=== PATIENT | female | born 1950 | race Caucasian/White ===

== ENCOUNTER 2021-07-25 19:03 | Emergency (ER) | payer BC, MEDICARE ==
[2021-07-25 19:23] VITALS: BP 168/85; PULSE 102; RESP 20; TEMP 97.8
[2021-07-25] MEDS ORDERED: DIPH,PERTUS(ACELL)TETVAC-LF 0.5 ML VIAL IM ONE (19:41)
--- NOTE | 2021-07-25 19:42 | ED ---
Fall HPI - General Chief Complaint: Fall Stated Complaint: Fall Time Seen by Provider: 07/25/21 19:34 Source: patient Mode of arrival: EMS - History of Present Illness Initial Comments: 70-year-old female patient presents to the emergency department today for evaluation of left knee pain after fall. States she was coming down the stairs and missed the last step and fell forward landing on her knee. Patient states she has significant soft tissue swelling and pain to the area. Unable to walk. Denies numbness or tingling to the leg. She denies hitting her head or losing consciousness. Denies any neck or back pain. Denies any other injuries. Patient is unsure when her last tetanus vaccine was given. Has not taken any pain medication prior to arrival. Patient denies any headache, chest pain, shortness of breath, dizziness, weakness, abdominal pain, nausea, vomiting, or difficulties with bowel movements or urination. - Related Data Previous Rx's Medication Instructions Recorded Acetaminophen-Codeine 300-30mg 1 tab PO Q6H PRN #12 tablet 07/25/21 [Tylenol #3] Cyclobenzaprine [Flexeril] 10 mg PO TID #15 tab 07/26/21 Allergies Allergy/AdvReac Type Severity Reaction Status Date / Time kiwi Allergy Swelling Verified 07/25/21 19:19 Sulfa (Sulfonamide Allergy Rash/Hives Verified 07/25/21 19:19 Antibiotics) Review of Systems ROS Statement: Those systems with pertinent positive or pertinent negative responses have been documented in the HPI. ROS Other: All systems not noted in ROS Statement are negative. Past Medical History Past Medical History: Diabetes Mellitus, Hyperlipidemia, Hypertension History of Any Multi-Drug Resistant Organisms: None Reported Past Surgical History: Cholecystectomy, Heart Catheterization, Heart Catheterization With Stent, Orthopedic Surgery Additional Past Surgical History / Comment(s): left hip[ Past Psychological History: No Psychological Hx Reported Smoking Status: Former smoker Past Alcohol Use History: Occasional Past Drug Use History: None Reported General Exam General appearance: alert, in no apparent distress, other (This is a well- developed, well-nourished adult female in no acute distress.) Head exam: Present: atraumatic, normocephalic, normal inspection ENT exam: Present: normal exam, normal oropharynx, mucous membranes moist Neck exam: Present: normal inspection, full ROM, other (Nontender, no step-off, no deformity to firm midline palpation of the posterior cervical spine. Full range of motion without pain or limitation.). Absent: tenderness, meningismus, lymphadenopathy Respiratory exam: Present: normal lung sounds bilaterally. Absent: respiratory distress, wheezes, rales, rhonchi, stridor Cardiovascular Exam: Present: normal rhythm, tachycardia, normal heart sounds. Absent: systolic murmur, diastolic murmur, rubs, gallop, clicks GI/Abdominal exam: Present: soft, normal bowel sounds. Absent: distended, tenderness, guarding, rebound, rigid Extremities exam: Present: tenderness (Left anterior knee), normal capillary refill, other (Significant anterior left knee swelling, ecchymosis, superficial abrasion. Skin to the left leg is otherwise pink, warm, dry. Cap refill less than 3 seconds. Pedal and posttibial pulses 2+.). Absent: normal inspection, full ROM (Limited to the left knee due to pain with movement), pedal edema, joint swelling, calf tenderness Back exam: Present: normal inspection, other (Nontender, no step-off, no deformity to firm midline palpation of the thoracic and lumbar vertebrae. Full range of motion without pain or limitation.). Absent: vertebral tenderness Neurological exam: Present: alert, oriented X3, CN II-XII intact Psychiatric exam: Present: normal affect, normal mood Skin exam: Present: warm, dry, intact, normal color. Absent: rash Course Vital Signs 07/25/21 19:19 Temperature 97.8 F Pulse Rate 102 H Respiratory 20 Rate Blood Pressure 168/85 O2 Sat by Pulse 94 L Oximetry - Reevaluation(s) Reevaluation #1: 07/25/21 19:41 Hard c-collar in place on arrival. No reports of neck pain. No bony tenderness or step off with midline palpation. She had no pain with gentle range of motion. C-collar cleared. 07/25/21 19:42 Patient declined pain medication. Medical Decision Making - Medical Decision Making 70-year-old female patient presents to the emergency department today for evaluation of left knee pain after a fall. Physical examination reveals significant soft tissue swelling over the left anterior knee with ecchymosis and superficial abrasion. X-ray was obtained and showed evidence for displaced patella fracture. Discussed the case with Dr. Garcia who recommends splinting and follow-up in the office. Patient is given crutches. Given pain medication/muscle relaxer. She is given instructions for follow-up with orthopedics Tuesday. Return parameters were discussed in detail. She verbalizes understanding and agrees with this plan. My attending is Dr. Mckenzie. - Radiology Data Radiology results: report reviewed, image reviewed X-ray of the left hip and pelvis are obtained. Report was reviewed in its entirety. Impression by Dr. Fagan shows no acute osseous pathology. Left hip arthroplasty changes with hardware intact. Disposition Clinical Impression: Displaced fracture of left patella Disposition: HOME SELF-CARE Condition: Good Instructions (If sedation given, give patient instructions): Patellar Fracture (ED), Splint Care (ED) Additional Instructions: Rest, ice, elevate the knee. Follow-up with orthopedics on Tuesday, call the office first thing in the morning for your appointment time. Take pain medication as directed. Return to the emergency department for any new, worsening, or concerning symptoms. Prescriptions: Acetaminophen-Codeine 300-30mg [Tylenol #3] 1 tab PO Q6H PRN #12 tablet PRN Reason: Pain Is patient prescribed a controlled substance at d/c from ED?: Yes When asked, does pt state using other controlled substances?: No If prescribed controlled substance>3 days was MAPS reviewed?: Prescribed <3 Days If opioid is for acute pain is fill amount 7 days or less?: Yes If Rx opioid, was Start Talking consent form obtained?: Yes Referrals: Nonstaff,Physician [Primary Care Provider] - 1-2 days Time of Disposition: 22:58
[2021-07-25] MEDS ORDERED: IBUPROFEN 600 MG TAB PO STA (20:24)
--- NOTE | 2021-07-25 21:05 | XR ---
EXAMINATION TYPE: XR Hip LT and AP Pelvis DATE OF EXAM: 07/25/2021 8:47 PM INDICATION: Patient age:Female; 70 years old; Reason for study: Fall/injury. COMPARISON: None TECHNIQUE: The left hip with AP pelvis was examined in the frontal and lateral projections. FINDINGS: Left total hip arthroplasty changes. Hardware is intact. No evidence of fracture. There are changes of the right hip. Pelvic fullness noted. Multilevel degenerative disc disease changes of the lower spine. No evidence of any acute osseous pathology, joint dislocation, or soft tissue swelling. IMPRESSION: 1. No acute osseous pathology. 2. Left hip arthroplasty changes with hardware intact.
--- NOTE | 2021-07-25 21:16 | XR ---
EXAMINATION TYPE: XR knee complete LT DATE OF EXAM: 07/25/2021 8:47 PM INDICATION: Patient age:Female; 70 years old; Reason for study: Fall/injury; COMPARISON: None TECHNIQUE: The left knee was examined in 3 projections. FINDINGS: Acute fracture through the mid pole of the patella with 2.8 cm of separation. There is as sociated soft tissue swelling. The visualized fixation hardware of the femur is intact. IMPRESSION: 1. Acute displaced patellar fracture associated soft tissue swelling. 2. Partially visualized fixation hardware of the femur.
[2021-07-25] MEDS ORDERED: CYCLOBENZAPRINE 10MG STARTER 3 TAB BTL PO STA (23:13)
[2021-07-25] MEDS ORDERED: ACET/COD 300 MG/30 MG STARTER PACK 6 TAB BTL PO STA (23:13)
== END 2021-07-25 23:47 | disposition home or self-care (01) ==
LOC: EC 19:03
DX: S82.042A Displaced comminuted fracture of left patella, initial encounter for closed fracture (principal); I10 Essential (primary) hypertension; E78.5 Hyperlipidemia, unspecified; E11.9 Type 2 diabetes mellitus without complications; Z88.2 Allergy status to sulfonamides; Z90.49 Acquired absence of other specified parts of digestive tract; Z87.891 Personal history of nicotine dependence; W10.8XXA Fall (on) (from) other stairs and steps, initial encounter
CPT/HCPCS: 73502; 90471; 90715; 99283

== ENCOUNTER 2021-08-04 09:06 | Day surgery (SDC) | payer MEDICARE, BC ==
[2021-07-31 15:19] VITALS: BMI 41.8
[~2021-08-04 09:06] MED LIST: DEXAMETHASONE SOD PHOSPHATE 4 MG/ML 1 ML VIAL IV ONE; HYDROmorphone 0.5 MG/0.5 ML SYRINGE IVP PRN; ONDANSETRON 4 MG/2 ML VIAL IVP ONE
[2021-08-04 10:10] LABS: Glucose,Whole Blood 249 mg/dL (75-99)
[2021-08-04] MEDS ORDERED: INSULIN ASPART (NovoLOG) 100 UNIT/ML VIAL SQ ONE (10:14)
[2021-08-04] MEDS: LACTATED RINGERS 1,000 ML IV SCH ×3 (10:15→21:12)
[2021-08-04] MEDS ORDERED: FAMOTIDINE 20 MG/2 ML VIAL IVP ONE (10:32)
[2021-08-04 10:37] LABS: African American GFR (CKD) >90 (>60 ml/min/1.73 sqM); Blood Urea Nitrogen 12 mg/dL (7-17); Non-African American GFR(CKD) 87 (>60 ml/min/1.73 sqM); Potassium 4.3 mmol/L (3.5-5.1)
[2021-08-04] MEDS ORDERED: MIDAZOLAM 2 MG/2 ML VIAL IVP ONE (10:38)
--- NOTE | 2021-08-04 10:48 | P.ANPRN ---
Procedure Note - Anesthesia - Nerve Block Performed Left Adductor Canal Single Time Out Performed: Yes ([id number]) Date of Procedure: 08/04/21 Procedure Start Time: 10:40 Procedure Stop Time: 10:45 Location of Patient: PreOp Indication: Acute Post-Operative Pain, Analgesia, Dx/Pain Location, Requested by Surgeon Sedation Type: Sedate with meaningful contact maintained Preparation: Sterile Prep Position: Supine Catheter: None Needle Types: Pajunk Needle Gauge: 21 Ultrasound used to visualize needle placement: Yes Ultrasound used to observe medication spread: Yes Injectate: 0.5% Ropivacaine (see comment for volume) (10 mL mixed with 10 mL of preservative free normal saline) Blood Aspirated: No Pain Paresthesia on Injection Noted: No Resistance on Injection: Normal Image Stored and Saved: Yes Events: Uneventful and Well Tolerated
[2021-08-04] MEDS ORDERED: ROPIVACAINE 5 MG/ML 30 ML VIAL ONE (11:36)
[2021-08-04] MEDS ORDERED: MIDAZOLAM 2 MG/2 ML VIAL ONE (11:36)
[2021-08-04] MEDS ORDERED: fentaNYL (PF) 50 MCG/ML 2 ML AMP ONE (11:36)
[2021-08-04] MEDS ORDERED: LIDOCAINE 1% INJ 10MG/ML (20 ML MDV) ONE (11:36)
[2021-08-04] MEDS ORDERED: PROPOFOL 10 MG/ML 20 ML VIAL IV ONE (11:36)
[2021-08-04] MEDS ORDERED: PHENYLEPHRINE-0.9% NACL SYG 1,000 MCG/10 ML SYRINGE ONE (11:36)
[2021-08-04] MEDS ORDERED: SODIUM CHLORIDE 0.9% (PF) 10 ML VIAL ONE (11:36)
[2021-08-04] MEDS ORDERED: ceFAZolin 1,000 MG in SODIUM CHLORIDE 0.9% 1,000 ML IRRIGATION ONE (11:39)
[2021-08-04] MEDS ORDERED: ROPIVACAINE 5 MG/ML 30 ML VIAL MISCELLANE ONE ×3 (12:15→12:50)
[2021-08-04] MEDS ORDERED: LACTATED RINGERS 1,000 ML IV ONE (12:50)
--- NOTE | 2021-08-04 12:55 | P.OP ---
Date of Procedure: 08/04/21 Preoperative Diagnosis: Displaced fracture mid pole left patella Postoperative Diagnosis: Displaced fracture mid pole left patella Procedure(s) Performed: Open reduction and internal fixation left patella Implants: Nance and nephew 4.0 cannulated screws 2 #2 fiber stick used x 2 Anesthesia: spinal Surgeon: Talha Pedraza [employer] Locator #1: Radha Osman Estimated Blood Loss (ml): 10 Pathology: none sent Condition: stable Disposition: PACU Indications for Procedure: This is a 70-year-old female that slipped and fell at home proximally week and a half ago. She presented to the office with a displaced midpole patellar fractur e of the left knee. At the time of presentation she had a large eschar on the anterior aspect of the knee in the area of the incision. Due to this eschar, I have delayed the surgery for a week or to allow some superficial skin healing. On inspection this morning preoperative area, it was felt eschar had healed well enough to proceed with surgery. Discussed the surgical and nonsurgical treatmen t options with her at length and she wishes to proceed with the open reduction internal fixation of her left patella. Informed consent was obtained. Operative Findings: The operative findings are consistent with a displaced midpole fracture of the left patella. Description of Procedure: The patient was seen and evaluated in the preoperative area, consent was reviewed, and the operative site was marked with a skin marker. An abductor and I packed block performed by anesthesia in the preoperative area. Patient was then brought to the operating room and given preoperative intravenous antibiotics. The left knee was then prepped and draped in the usual sterile fashion. A universal timeout was performed which confirmed the patient's name, surgical site, ALLERGIES, and consent. Left lower extremity was exsanguinated and the tourniquet was inflated to 250 mmHg. A midline incision was then performed with a skin subcutaneous tissue sharply incised. Care was taken to avoid eschar on the anterior aspect of the knee. Incision was carried down to the fracture which was readily visualized. There is found to be 2 large fragments of equal size of the mid pole the patella. The fracture hematoma was evacuated. Next the area was irrigated with antibiotic solution. Next a large pointed reduction forceps was used to reduce the fracture. This was confirmed with fluoroscopy. Next 2 guidewires were placed from inferior to superior in parallel fashion across the patella. Placement of guidewires was confirmed with fluoroscopy as well. These were then measured, drilled, and appropriate length screws were placed. Next #2 FiberWire was passed through the screws and tied in a [id number] fashion over the anterior aspect of the patella. Final fluoroscopic x-rays confirmed reduction of the fracture and placement of the screws. The tourniquet was released and hemostasis was obtained. The area was then irrigated with more antibiotic solution. Retinaculum was repaired with #1 Vicryl. 30 mL of quarter percent plain ropivacaine were injected about the surgical site. 3-0 Vicryl was used for the subcutaneous tissues and sofiya for the skin. A sterile dressing was applied the patient was placed in a leg immobilizer. Patient was then transferred recovery room in stable condition. Asst. DL Zazueta was required due the complexity surgery and the need for skilled surgical manager.
[2021-08-04] MEDS ORDERED: NALOXONE 0.4 MG/ML 1 ML VIAL IV PRN ×2 (13:15→13:17)
[2021-08-04] MEDS ORDERED: bisacodyL 10 MG SUPP RECTAL PRN (13:17)
[2021-08-04] MEDS ORDERED: MAGNESIUM HYDROXIDE 2,400 MG/10 ML CUP PO PRN (13:17)
[2021-08-04] MEDS ORDERED: HYDROmorphone 0.5 MG/0.5 ML SYRINGE IVP PRN (13:17)
[2021-08-04] MEDS ORDERED: ONDANSETRON 4 MG/2 ML VIAL IVP PRN (13:17)
[2021-08-04] MEDS ORDERED: HYDROmorphone 0.2 MG/1 ML SYRINGE IVP PRN (13:17)
[2021-08-04] MEDS ORDERED: NA PHOS,M-B/NA PHOS,DI-BA 133 ML ENEMA RECTAL PRN (13:17)
[2021-08-04] MEDS ORDERED: HYDROcodone/APAP 7.5-325MG 1 EACH TAB PO PRN (13:19)
[2021-08-04 13:40] LABS: Glucose,Whole Blood 124 mg/dL (75-99)
[2021-08-04] MEDS ORDERED: MAGNESIUM SULFATE-D5W PMX 1 GM in DEXTROSE/WATER 1 100ML.BAG IVPB ONE (13:50)
[2021-08-04] MEDS: SODIUM CHLORIDE 0.9% 1,000 ML IV SCH (14:44)
--- NOTE | 2021-08-04 16:05 | FL ---
EXAMINATION TYPE: FL guidance operating room, XR knee limited LT DATE OF EXAM: 08/04/2021 COMPARISON: NONE HISTORY: 70-year-old female left knee ORIF FINDINGS: 3 intraoperative fluoroscopic images of left knee during internal fixation of the patella. FLUOROSCOPY Fluoroscopy time of 20 seconds was used during patellar internal fixation. 3 image/s document/s the procedure. IMPRESSION: Intraoperative fluoroscopy as above.
[2021-08-04] MEDS: HYDROcodone/APAP 7.5-325MG 1 EACH TAB PO PRN ×2 (16:16→21:18)
[2021-08-04] MEDS: HYDROmorphone 0.5 MG/0.5 ML SYRINGE IVP PRN ×2 (16:38→19:37)
[2021-08-04 16:43] LABS: Glucose,Whole Blood 104 mg/dL (75-99)
[2021-08-04] MEDS ORDERED: CYCLOBENZAPRINE 10 MG TAB PO PRN (18:05)
--- NOTE | 2021-08-04 18:10 | P.CONS ---
History of Present Illness - Reason for Consult Consult date: 08/04/21 - Chief Complaint medical management - History of Present Illness 70 year old woman with history of CAD s/p PCI in 2014, HTN/HLD, DMII presented for right knee arthroplasty. Pt did well during the procedure and doing well upon my evaluation afterwards. Her only complaint is knee pain. No other active medical issues. Patient denies fevers, chills, nausea, vomiting, chest pain, palpitations, sick be, presyncope, abdominal pain, diarrhea, constipation, dysuria, dyschezia, numbness/weakness of extremity's. Patient is afebrile, 116/66, heart rate 78, 100% on 2 L nasal cannula. Labs and imaging reviewed. 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 History of Any Multi-Drug Resistant Organisms: None Reported Past Surgical History: Cholecystectomy, Heart Catheterization, Heart Catheterization With Stent, Joint Replacement Additional Past Surgical History / Comment(s): total left hip, heart stent, orif left patella Past Anesthesia/Blood Transfusion Reactions: No Reported Reaction Additional Past Anesthesia/Blood Transfusion Reaction / Comm: no hx blood transfusion Date of Last Stent Placement:: 2014 Past Psychological History: No Psychological Hx Reported Smoking Status: Former smoker Past Alcohol Use History: Occasional Additional Past Alcohol Use History / Comment(s): quit smoking 1986, smoked approx 20 yrs Past Drug Use History: None Reported - Past Family History Mother Family Medical History: No Reported History Sister(s) Family Medical History: Deep Vein Thrombosis (DVT) Medications and Allergies Home Medications Medication Instructions Recorded Confirmed Type Aspirin 81 mg PO DAILY 07/31/21 08/04/21 History Cephalexin [Keflex] 500 mg PO QID 07/31/21 07/31/21 History Cholecalciferol [Vitamin D3 (125 125 mcg PO DAILY 07/31/21 07/31/21 History Mcg = 5000 Iu)] Cider Vinegar [Apple Cider Vinegar] 300 mg PO DAILY 07/31/21 07/31/21 History Cyclobenzaprine [Flexeril] 10 mg PO TID PRN 07/31/21 07/31/21 History Dulaglutide [Trulicity] 3 mg SQ Q7D 07/31/21 07/31/21 History Garlic 1 each PO DAILY 07/31/21 07/31/21 History HYDROcodone/APAP 7.5-325MG [[place] 1 tab PO Q6HR PRN 07/31/21 07/31/21 History 7.5-325] INSULIN LISPRO (humaLOG) [humaLOG] 30 units SQ TID-W/MEALS 07/31/21 07/31/21 History Insulin Detemir (Levemir) [Levemir] 60 units SQ QAM 07/31/21 07/31/21 History Insulin Detemir (Levemir) [Levemir] 70 units SQ HS 07/31/21 07/31/21 History Lisinopril [Prinivil] 10 mg PO BID 07/31/21 07/31/21 History Lovastatin [Mevacor] 40 mg PO HS 07/31/21 07/31/21 History Multivit with Calcium,Iron,Min 1 each PO DAILY 07/31/21 07/31/21 History [Women's Multivitamin] Ubidecarenone [Co Q-10] 100 mg PO DAILY 07/31/21 07/31/21 History Vitamin B Complex 1 each PO DAILY 07/31/21 07/31/21 History metFORMIN HCL 500 mg PO BID 07/31/21 07/31/21 History Aspirin 325 mg PO BID #60 tab 08/04/21 Rx HYDROcodone/APAP 7.5-325MG [[place] 1 - 2 tab PO Q6H PRN #32 tab 08/04/21 Rx 7.5-325] Ondansetron Odt [Zofran Odt] 1 tab PO Q8HR PRN #10 tab 08/04/21 Rx Sennosides [Senokot] 2 tab PO DAILY PRN #60 tablet 08/04/21 Rx Allergies Allergy/AdvReac Type Severity Reaction Status Date / Time kiwi Allergy Swelling Verified 08/04/21 10:00 Sulfa (Sulfonamide Allergy Rash/Hives Verified 08/04/21 10:00 Antibiotics) Physical Exam Osteopathic Statement: *. No significant issues noted on an osteopathic structural exam other than those noted in the History and Physical/Consult. Vitals: Vital Signs Temp Pulse Pulse Resp BP Pulse Ox 08/04/21 15:20 78 116/66 100 08/04/21 14:50 97.5 F L 81 16 106/64 96 08/04/21 14:15 75 16 115/61 100 08/04/21 14:01 79 16 117/61 100 08/04/21 13:46 77 16 110/59 100 08/04/21 13:31 75 16 101/76 100 08/04/21 13:16 83 18 104/53 98 08/04/21 13:09 97.7 F 94 18 102/56 97 08/04/21 09:58 97.7 F 106 H 17 144/70 97 Intake and Output 08/04/21 08/04/21 08/04/21 06:59 14:59 22:59 Intake Total 1551 100 Output Total 10 Balance 1541 100 Intake: IV 1551 Intake, IV Titration 100 Amount Magnesium Sulfate-D5w Pmx 100 1 gm In Dextrose/Water 1 100ml.bag @ 100 mls/hr IVPB ONCE ONE Rx#: [id number] Output: Estimated Blood Loss 10 Other: Weight 102 kg 102 kg Gen: awake, alert HEENT: normocephalic, atraumatic, good hearing acuity, moist mucous membranes Resp: good air exchange, breathing comfortably with no accessory muscle use, clear to auscultation bilaterally CVS: good distal perfusion x 4, regular rate and rhythm without murmurs GI: soft, NTTP, ND : no SPT, no CVAT, baxter catheter is present MSK: no pitting edema, no clubbing Neuro: non-focal, moving all extremities Psych: cooperative, euthymic mood Results CBC & Chem 7: 08/04/21 10:00 Labs: Abnormal Lab Results - Last 24 Hours (Table) 08/04/21 08/04/21 08/04/21 Range/Units 10:07 13:30 16:39 POC Glucose (mg/dL) 249 H 124 H 104 H (75-99) mg/dL Assessment and Plan Assessment: CAD HTN HLD DM 2 -Home medications were reviewed and reconciled -Correctional insulin while in house -patient is on a lot of insulin based on home meds, but her POC glucoses have been around 100s. Will give half dose of tonights home long acting, and check A1c Right knee osteoarthritis -care per primary team.
[2021-08-04 19:55] LABS: Glucose,Whole Blood 195 mg/dL (75-99)
[2021-08-04] MEDS ORDERED: INSULIN DETEMIR (LEVEMIR) 100 UNIT/ML SYR SQ SCH ×2 (21:00)
[2021-08-04] MEDS ORDERED: SENNOSIDES-DOCUSATE SODIUM 1 EACH TAB PO SCH (21:00)
[2021-08-04] MEDS ORDERED: ATORVASTATIN 10 MG TAB PO SCH (21:00)
[2021-08-04] MEDS: ASPIRIN 325 MG TAB PO SCH (21:19)
[2021-08-04] MEDS: lisinopriL 10 MG TAB PO SCH (21:19)
[2021-08-05] MEDS: HYDROmorphone 0.5 MG/0.5 ML SYRINGE IVP PRN ×2 (00:38→05:52)
[2021-08-05] MEDS: HYDROcodone/APAP 7.5-325MG 1 EACH TAB PO PRN ×3 (02:35→12:23)
[2021-08-05] MEDS: SODIUM CHLORIDE 0.9% 1,000 ML IV SCH (03:29)
[2021-08-05 06:55] LABS: Glucose,Whole Blood 149 mg/dL (75-99)
[2021-08-05] MEDS ORDERED: INSULIN DETEMIR (LEVEMIR) 100 UNIT/ML SYR SQ SCH ×2 (07:00→21:00)
[2021-08-05] MEDS: INSULIN ASPART (NovoLOG) 100 UNIT/ML VIAL SQ SCH ×2 (07:38→11:41)
[2021-08-05] MEDS: ASPIRIN 325 MG TAB PO SCH (08:43)
[2021-08-05] MEDS: lisinopriL 10 MG TAB PO SCH (08:43)
[2021-08-05] MEDS ORDERED: ASPIRIN 81 MG PO SCH (09:00)
[2021-08-05] MEDS ORDERED: CHOLECALCIFEROL 125 MCG (5000 IU) TABLET PO SCH (09:00)
[2021-08-05] MEDS ORDERED: MULTIVITAMINS, THERA 1 EACH TAB PO SCH (09:00)
[2021-08-05 09:07] LABS: Basophils # (A) 0.04 X 10*3/uL (0.00-0.10); Basophils % (A) 0.4 %; Eosinophils % (A) 3.4 %; HCT 34.7 % (37.2-46.3); HGB 10.7 g/dL (12.0-15.0); Immature Grans, Automated 0.6 %; Lymphocytes # (A) 1.57 X 10*3/uL (0.90-5.00); Lymphocytes % (A) 17.6 %; MCH 29.6 pg (27.0-32.0); MCHC 30.8 g/dL (32.0-37.0); MCV 95.9 fL (80.0-97.0); Mean Platelet Volume 10.3 fL (9.5-12.2); Monocytes # (A) 0.86 X 10*3/uL (0.20-1.00); Monocytes % (A) 9.6 %; NRBC Per 100 WBC 0 /100 WBCS (0.0-0.0); Neutrophils % (A) 68.4 %; Platelet Count 298 X 10*3/uL (140-440); RBC 3.62 X 10*6/uL (4.10-5.20); RDW 13.8 % (11.5-14.5); WBC 8.92 X 10*3/uL (4.50-10.00)
[2021-08-05 09:20] LABS: Anion Gap 9.8 mmol/L (10.00-18.00); Carbon Dioxide 29.2 mmol/L (20.0-27.5); Magnesium 1.6 mg/dL (1.5-2.4); Potassium 4.8 mmol/L (3.5-5.5)
--- NOTE | 2021-08-05 09:52 | P.PN ---
Subjective Progress Note Date: 08/05/21 No new complaints today. Pt resumed to home doses of insulin starting tonight. Medically cleared for discharge when ready by primary team. Objective - Vital Signs Vital signs: Vital Signs Temp 97.8 F 08/05/21 07:43 Pulse 96 08/05/21 07:43 Resp 14 08/05/21 08:13 BP 131/64 08/05/21 07:43 Pulse Ox 92 L 08/05/21 07:43 Intake & Output 08/04/21 08/05/21 08/05/21 18:59 06:59 18:59 Intake Total 1651 180 Output Total 10 Balance 1641 180 Weight 102 kg Intake: IV 1551 Intake, IV Titration 100 Amount Magnesium Sulfate-D5w Pmx 100 1 gm In Dextrose/Water 1 100ml.bag @ 100 mls/hr IVPB ONCE ONE Rx#: [id number] Oral 180 Output: Estimated Blood Loss 10 Other: # Voids 1 - Exam Gen: awake, alert HEENT: normocephalic, atraumatic, good hearing acuity, moist mucous membranes Resp: good air exchange, breathing comfortably with no accessory muscle use, clear to auscultation bilaterally CVS: good distal perfusion x 4, regular rate and rhythm without murmurs GI: soft, NTTP, ND : no SPT, no CVAT, baxter catheter is present MSK: no pitting edema, no clubbing Neuro: non-focal, moving all extremities Psych: cooperative, euthymic mood - Labs CBC & Chem 7: 08/05/21 03:13 08/05/21 03:13 Labs: Abnormal Lab Results - Last 24 Hours (Table) 08/04/21 08/04/21 08/04/21 Range/Units 10:07 13:30 16:39 RBC (4.10-5.20) X 10*6/uL Hgb (12.0-15.0) g/dL Hct (37.2-46.3) % MCHC (32.0-37.0) g/dL Immature Gran # (0.00-0.04) X 10*3/uL Carbon Dioxide (20.0-27.5) mmol/L Anion Gap (10.00-18.00) mmol/L POC Glucose (mg/dL) 249 H 124 H 104 H (75-99) mg/dL Hemoglobin A1c (0.0-6.0) % 08/04/21 08/05/21 08/05/21 Range/Units 19:54 03:13 03:13 RBC (4.10-5.20) X 10*6/uL Hgb (12.0-15.0) g/dL Hct (37.2-46.3) % MCHC (32.0-37.0) g/dL Immature Gran # (0.00-0.04) X 10*3/uL Carbon Dioxide 29.2 H (20.0-27.5) mmol/L Anion Gap 9.80 L (10.00-18.00) mmol/L POC Glucose (mg/dL) 195 H (75-99) mg/dL Hemoglobin A1c 7.8 H (0.0-6.0) % 08/05/21 08/05/21 Range/Units 03:13 06:54 RBC 3.62 L (4.10-5.20) X 10*6/uL Hgb 10.7 L (12.0-15.0) g/dL Hct 34.7 L (37.2-46.3) % MCHC 30.8 L (32.0-37.0) g/dL Immature Gran # 0.05 H (0.00-0.04) X 10*3/uL Carbon Dioxide (20.0-27.5) mmol/L Anion Gap (10.00-18.00) mmol/L POC Glucose (mg/dL) 149 H (75-99) mg/dL Hemoglobin A1c (0.0-6.0) %
--- NOTE | 2021-08-05 10:40 | P.DS ---
Providers Expected date of discharge: 08/05/21 Attending physician: Talha Pedraza Consults: 08/04/21 13:17 Consult Physician Routine Consulting Provider: Britany Luciano Consult Reason/Comments: medical management Do you want consulting provider notified?: Yes Primary care physician: Stated None - Discharge Diagnosis(es) (1) Displaced fracture of left patella Current Visit: Yes Status: Acute Hospital Course: This is a 70-year-old female that slipped and fell at home proximally week and a half ago. She presented to the office with a displaced midpole patellar fracture of the left knee. At the time of presentation she had a large eschar on the anterior aspect of the knee in the area of the incision. Due to this eschar, I have delayed the surgery for a week or to allow some superficial skin healing. On inspection this morning preoperative area, it was felt eschar had healed well enough to proceed with surgery. Discussed the surgical and nonsurgical treatment options with her at length and she wishes to proceed with the open reduction internal fixation of her left patella. Informed consent was obtained. the patient is taken to surgery on 08/04/2021 for open reduction internal fixation of the left patella. The procedure is performed without complication or sequelae. The patient is doing well postoperatively. She was evaluated by physical therapy this morning who felt she was safe to be discharged to home. The patient is discharged to home on postop day #1. Please see med rec for accurate list of home medications. Patient Condition at Discharge: Good Plan - Discharge Summary Discharge Rx Participant: No New Discharge Prescriptions: New HYDROcodone/APAP 7.5-325MG [[place] 7.5-325] 1 - 2 tab PO Q6H PRN #32 tab PRN Reason: Pain Aspirin 325 mg PO BID #60 tab Sennosides [Senokot] 2 tab PO DAILY PRN #60 tablet PRN Reason: Constipation Ondansetron Odt [Zofran Odt] 1 tab PO Q8HR PRN #10 tab PRN Reason: Nausea No Action HYDROcodone/APAP 7.5-325MG [[place] 7.5-325] 1 tab PO Q6HR PRN PRN Reason: Pain Cyclobenzaprine [Flexeril] 10 mg PO TID PRN PRN Reason: Pain Dulaglutide [Trulicity] 3 mg SQ Q7D Insulin Detemir (Levemir) [Levemir] 70 units SQ HS Insulin Detemir (Levemir) [Levemir] 60 units SQ QAM Lovastatin [Mevacor] 40 mg PO HS Lisinopril [Prinivil] 10 mg PO BID Ubidecarenone [Co Q-10] 100 mg PO DAILY Cider Vinegar [Apple Cider Vinegar] 300 mg PO DAILY INSULIN LISPRO (humaLOG) [humaLOG] 30 units SQ TID-W/MEALS metFORMIN HCL 500 mg PO BID Aspirin 81 mg PO DAILY Cephalexin [Keflex] 500 mg PO QID Multivit with Calcium,Iron,Min [Women's Multivitamin] 1 each PO DAILY Garlic 1 each PO DAILY Cholecalciferol [Vitamin D3 (125 Mcg = 5000 Iu)] 125 mcg PO DAILY Vitamin B Complex 1 each PO DAILY Discharge Medication List Aspirin 81 mg PO DAILY 07/31/21 [History] Cephalexin [Keflex] 500 mg PO QID 07/31/21 [History] Cholecalciferol [Vitamin D3 (125 Mcg = 5000 Iu)] 125 mcg PO DAILY 07/31/21 [History] Cider Vinegar [Apple Cider Vinegar] 300 mg PO DAILY 07/31/21 [History] Cyclobenzaprine [Flexeril] 10 mg PO TID PRN 07/31/21 [History] Dulaglutide [Trulicity] 3 mg SQ Q7D 07/31/21 [History] Garlic 1 each PO DAILY 07/31/21 [History] HYDROcodone/APAP 7.5-325MG [[place] 7.5-325] 1 tab PO Q6HR PRN 07/31/21 [History] INSULIN LISPRO (humaLOG) [humaLOG] 30 units SQ TID-W/MEALS 07/31/21 [History] Insulin Detemir (Levemir) [Levemir] 60 units SQ QAM 07/31/21 [History] Insulin Detemir (Levemir) [Levemir] 70 units SQ HS 07/31/21 [History] Lisinopril [Prinivil] 10 mg PO BID 07/31/21 [History] Lovastatin [Mevacor] 40 mg PO HS 07/31/21 [History] Multivit with Calcium,Iron,Min [Women's Multivitamin] 1 each PO DAILY 07/31/21 [History] Ubidecarenone [Co Q-10] 100 mg PO DAILY 07/31/21 [History] Vitamin B Complex 1 each PO DAILY 07/31/21 [History] metFORMIN HCL 500 mg PO BID 07/31/21 [History] Aspirin 325 mg PO BID #60 tab 08/04/21 [Rx] HYDROcodone/APAP 7.5-325MG [[place] 7.5-325] 1 - 2 tab PO Q6H PRN #32 tab 08/04/21 [Rx] Ondansetron Odt [Zofran Odt] 1 tab PO Q8HR PRN #10 tab 08/04/21 [Rx] Sennosides [Senokot] 2 tab PO DAILY PRN #60 tablet 08/04/21 [Rx] Follow up Appointment(s)/Referral(s): Talha Pedraza DO [Doctor of Osteopathic Medicine] - 10 Days Activity/Diet/Wound Care/Special Instructions: Maintain knee immobilizer at all times except for hygiene and skin checks. Weightbearing as tolerated with a walker. Leave dressing intact. Dressing may be removed by home care nurse or by patient in 7 days. Then change dressing twice daily until follow up. May shower with initial dressing intact and after removal. If dressing become saturated, please remove. Recommend use of compression stockings daily until follow up to help prevent swelling and blood clots. May remove at night before sleeping. Please take aspirin 325mg twice daily for 30 days to prevent blood clots. Please follow up with [facility] and call with any questions or concerns, . Discharge Disposition: HOME SELF-CARE
[2021-08-05 11:08] LABS: Glucose,Whole Blood 97 mg/dL (75-99)
[2021-08-05 12:13] VITALS: BP 143/78; PULSE 87; RESP 12; TEMP 97.6
== END 2021-08-05 13:22 | disposition home or self-care (01) ==
LOC: OR 09:06 → 4SSUR 13:09 → OR 08-05 13:22
PROVIDERS: ATTEND Orthopaedic Surgery
DX: S82.002A Unspecified fracture of left patella, initial encounter for closed fracture (principal); Z20.822 Contact with and (suspected) exposure to COVID-19; E11.9 Type 2 diabetes mellitus without complications; I10 Essential (primary) hypertension; E78.5 Hyperlipidemia, unspecified; Z86.16 Personal history of COVID-19
CPT/HCPCS: 27524; 97161; 97166; 64447; 76942; 80051; 82565; 83735; 84132; 84520; 85025; 83036; 87635; 73560; C1713 ×2; J2250; J0690 ×3; J2405; J2001; J3010; J3475; J2795; J2370; J2704; J1170 ×2